=== PATIENT | female | born 1945 | race Two or more races ===

== ENCOUNTER 2018-04-14 05:58 | Day surgery (SDC) | payer BC ==
[~2018-04-14] VITALS: Ht 154.9 cm; Wt 57.6 kg
[2018-04-14] MEDS ORDERED: MULT1TAB52 PO (06:19)
[2018-04-14] MEDS ORDERED: IBUP-1060 PO (06:19)
[2018-04-14] MEDS ORDERED: PHYT100T PO (06:20)
[2018-04-14] MEDS ORDERED: VITA400C6 PO (06:21)
[2018-04-14] MEDS ORDERED: CALC500T54 PO (06:21)
[2018-04-14] MEDS ORDERED: ASCO500C PO (06:23)
[2018-04-14] MEDS ORDERED: ONDANSETRON PF 4 MG/2 ML VIAL. IV PRN (07:00)
[2018-04-14] MEDS ORDERED: PROCHLORPERAZINE 10 MG/2 ML VIAL. IV PRN (07:00)
[2018-04-14] MEDS ORDERED: IV RINGERS,LACTATED 1000ML 1,000 ML IV SCH (07:00)
[2018-04-14] MEDS ORDERED: HYDROmorphone 2 MG/ML VIAL IV PRN (07:00)
[2018-04-14] MEDS ORDERED: fentaNYL PF VIAL 100 MCG/2 ML VIAL IV PRN ×2 (07:00)
[2018-04-14] MEDS ORDERED: MORPHINE SULFATE 2 MG/ML VIAL. IV PRN (07:00)
[2018-04-14] MEDS ORDERED: LIDOCAINE 1% PF 2 ML VIAL. ID PRN (07:00)
[2018-04-14] MEDS ORDERED: LIDOCAINE 2% PF Vial for OR 5 ML VIAL. ONE (07:05)
[2018-04-14] MEDS ORDERED: BUPIVAC MPF-EPI 0.5%-1:200000 30 ML VIAL. ONE (07:05)
[2018-04-14] MEDS ORDERED: PROPOFOL 20 ML IV ONE (07:05)
[2018-04-14] MEDS ORDERED: fentaNYL PF VIAL 100 MCG/2 ML VIAL ONE (07:05)
--- NOTE | 2018-04-14 07:46 | DISCH ---
DISCHARGE INSTRUCTIONS Condition on Discharge Condition on Discharge: Stable Activity After Discharge Activity Instructions for Disc: Other, see below (advance activity slowly as tolerated) Weight Bearing Status after Di: As tolerated Diet after Discharge Diet after Discharge: Regular Wound Incision Care Wound/Incision Care: Ice to area for comfort, Keep wound elevated, Change dressing (May remove dressing in 2 days may then shower no soaking until sutures removed) Contacting the DR. after DC Call your doctor for: Concerns you may have Follow-Up Follow up with: Feliciano 7-10 days Treatment/Equipment after DC Adaptive Equipment Issued: Crutches (patient has own crutches) ABDOUL BUI MD Apr 14, 2018 07:46
[2018-04-14] MEDS ORDERED: HYDR-3165 PO (07:47)
[2018-04-14] MEDS ORDERED: SEVOFLURANE 16 TO 30 MINUTES. IH ONE (07:50)
[2018-04-14] MEDS ORDERED: ePHEDrine PF IN SALINE 50 MG/5 ML DISP.SYRIN IV ONE (07:50)
[2018-04-14] MEDS ORDERED: ONDANSETRON PF 4 MG/2 ML VIAL. ONE (07:50)
[2018-04-14] MEDS ORDERED: DEXAMETHASONE SOD PHOS 20 MG/5 ML VIAL. ONE (07:50)
[2018-04-14] MEDS ORDERED: HYDROcodone/APAP 7.5/325MG 1 TAB TABLET PO ONE (09:15)
[2018-04-14] MEDS ORDERED: HYDROcodone/APAP 7.5/325MG 1 TAB TABLET ONE (09:20)
--- NOTE | 2018-04-14 09:22 | PDOC4 ---
Operative Note Operative Note Date of surgery: 04/14/2018 Preoperative diagnosis: Right knee medial meniscus tear Postoperative diagnosis: Same plus free edge lateral meniscus tear Operative procedure: Right knee arthroscopy partial medial and lateral meniscectomy Surgeon: Feliciano Assist:Dustin Anesthesia: Gen. Estimated blood loss: 5 mL Complications: None Operative indications: Cathie is a 72-year-old female with pain swelling and mechanical symptoms particularly with twisting getting up out of a chair uneven ground and out of a car with her right knee MRI had confirmed clinical suspicion of a meniscal tear I gone over with her the anatomy and function risks benefits postoperative course of planned arthroscopic treatment possibility of continued pain nerve or blood vessel damage medical or other anesthetic complications infection among others and particularly the fact that I cannot undo any degenerative wear and tear type changes nor affect her symptoms. All her questions were answered she wishes to proceed with surgical evaluation and treatment. Operative text: Patient was identified procedure verified patient placed in the supine position on the operating table. After adequate amounts of general anesthesia were administered the right lower extremity was prepped and draped in standard sterile fashion with a thigh tourniquet after timeout was performed patient procedure identified and verified the right lower extremity was examined by Esmarch bandage tourniquet inflated to 300 mmHg a lateral portal was established a medial portal established using spinal needle localization and the knee joint was systematically examined. 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 Medial meniscus was probed and found to have a displaceable tear at the junction of the body and posterior horn of the medial meniscus this involved approximately 50% of the rim of the meniscus which was trimmed back to stable tissue and radiused appropriately to avoid any stress risers. Minimal chondromalacia was noted in the medial compartment ACL was probed and found to be intact the lateral meniscus had a free edge tear in the body portion and was trimmed back to stable tissue with arthroscopic punch and shaver involving about 15% of the rim of the meniscus. The knee was toured to ensure no loose cartilage fragments or other pathology noted in the knee was drained of arthroscopic fluid portals closed with nylon suture sterile dressings were applied toes were noted be warm pink find deflation of tourniquet patient was returned recovery room in stable condition having tolerated procedure well ABDOUL BIU MD Apr 14, 2018 09:22
[2018-04-14 09:23] VITALS: BP 142/62
== END 2018-04-14 10:00 | disposition home or self-care (01) ==
LOC: SURG 05:58
PROVIDERS: ATTEND Orthopaedic Surgery
DX: S83.241A Other tear of medial meniscus, current injury, right knee, initial encounter (principal); S83.281A Other tear of lateral meniscus, current injury, right knee, initial encounter; M22.41 Chondromalacia patellae, right knee; Z88.2 Allergy status to sulfonamides; X50.1XXA Overexertion from prolonged static or awkward postures, initial encounter; Y93.89 Activity, other specified; Y92.89 Other specified places as the place of occurrence of the external cause; Y99.8 Other external cause status
CPT/HCPCS: 29880; A7015; C1782; J0690; J1100; J2001; J2405; J2704; J3010; J3490